=== PATIENT | female | born 1990 | race Caucasian/White ===

== ENCOUNTER 2017-06-21 02:21 | Emergency (ER) | payer BC, OTHER ==
[~2017-06-21] VITALS: Ht 162.6 cm; Wt 61.3 kg
[2017-06-21 02:25] VITALS: BP 125/86
== END 2017-06-21 03:47 | disposition home or self-care (01) ==
LOC: ED 03:11
DX: S50.11XA Contusion of right forearm, initial encounter (principal); M25.531 Pain in right wrist; V89.2XXA Person injured in unspecified motor-vehicle accident, traffic, initial encounter; Y93.89 Activity, other specified; Y99.8 Other external cause status; Y92.488 Other paved roadways as the place of occurrence of the external cause
CPT/HCPCS: 99284

== ENCOUNTER 2019-12-31 10:31 | Emergency (ER) | payer OTHER ==
[~2019-12-31] VITALS: Ht 162.6 cm; Wt 61.0 kg
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
--- NOTE | 2019-12-31 10:49 | NUR ---
PT REPORT FROM SAVANNAH BATES. PT CARE TO BE ASSUMED.
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
[2019-12-31 11:07] VITALS: BP 126/96
== END 2019-12-31 11:58 | disposition home or self-care (01) ==
LOC: ED 11:35
DX: J70.5 Respiratory conditions due to smoke inhalation (principal)
CPT/HCPCS: 99281